=== PATIENT | female | born 1980 | race Caucasian/White ===

== ENCOUNTER 2018-05-07 09:09 | Emergency (ER) | payer OTHER ==
[~2018-05-07] VITALS: Ht 154.9 cm; Wt 49.0 kg
[~2018-05-07 09:09] MED LIST: ALLERGRA PO; AMBIEN10 MG PO; ATIVAN PO; HYDROCODON-ACE1 EAC9 PO; HYDROCODONE PO; LISINOPRIL PO; LOPRESSOR25 MG PO; PREDNISONE PO; PROAIR HFA8.5 G1 PO; SYMBICORT 160-4.6 GM PO; VIBRYD PO; XANAX2 MG PO; XOP
== END 2018-05-07 10:03 | disposition home or self-care (01) ==
LOC: FSED 09:09
DX: E87.5 Hyperkalemia (principal); I10 Essential (primary) hypertension; J45.909 Unspecified asthma, uncomplicated
CPT/HCPCS: 80053; 80307; 81003; 81025; 99283

== ENCOUNTER → 2018-05-10 | Day surgery (SDC) | payer OTHER ==
[2018-05-06 11:18] LABS: BASOPHILS % 0.5 % (0.0-1.0); EOSINOPHILS # (AUTO) 0.3 (0.0-0.4); EOSINOPHILS % 3.2 % (0.0-6.0); HEMATOCRIT 44.3 % (34.2-44.1); HEMOGLOBIN 15.2 g/dL (12.0-16.0); LYMPHOCYTES # (AUTO) 2.4 (1.0-3.2); LYMPHOCYTES % 31.1 % (18.0-39.1); MEAN CORPUSCULAR HEMOGLOBIN 31.3 pg (28-32); MEAN CORPUSCULAR HGB CONC 34.3 g/dL (31-35); MEAN CORPUSCULAR VOLUME 91.2 fL (81-99); MONOCYTES # (AUTO) 0.8 (0.2-0.8); MONOCYTES % 10.8 % (4.4-11.3); NEUTROPHILS # (AUTO) 4.2 (2.1-6.9); NEUTROPHILS % 54.3 % (38.7-80.0); PLATELET COUNT 282 x10e3/uL (140-360); RED BLOOD COUNT 4.86 x10e6/uL (3.6-5.1); RED CELL DISTRIBUTION WIDTH 14.3 % (11.7-14.4)
[2018-05-06 11:27] LABS: INR 0.96
[2018-05-06 11:35] LABS: ALANINE AMINOTRANSFERASE 123 IU/L (0-55); ALBUMIN 4.1 g/dL (3.5-5.0); ALBUMIN/GLOBULIN RATIO 1.4 (0.8-2.0); ALKALINE PHOSPHATASE 102 IU/L (40-150); BLOOD UREA NITROGEN 5 mg/dL (7-26); BUN/CREATININE RATIO 7 (6-25); CALCIUM 10.2 mg/dL (8.4-10.2); CARBON DIOXIDE 29 mmol/L (22-29); CHLORIDE 101 mmol/L (98-107); CREATININE, SERUM 0.69 mg/dL (0.57-1.11); EST GLOMERULAR FILTRATION RATE > 60 ML/MIN (60-); GLUCOSE 90 mg/dL (74-118); SODIUM 140 mmol/L (136-145)
[~2018-05-10] VITALS: Ht 152.4 cm; Wt 49.0 kg
[2018-05-10] VITALS (8 sets, daily range): BP systolic 101–118; BP diastolic 60–77
[~2018-05-10] MED LIST changes: +FENTANYL CITRATE/PF 100MCG/2 ML INJ ONE; +HEPARIN SOD/SOD CHLORIDE 2,000 ML ONE; +IOPAMIDOL 370 MG/ML 200 ML INFUS..BTL INJ ONE; +LIDOCAINE HCL 2% LOCAL 20 ML VIAL ONE; +MIDAZOLAM HCL 2 MG/2 ML VIAL ONE; +SODIUM CHLORIDE 0.9% 1000ML 1,000 ML ONE
[2018-05-10 10:09] LABS: ANION GAP 17.3 mmol/L (8-16); BLOOD UREA NITROGEN 6 mg/dL (7-26); BUN/CREATININE RATIO 9 (6-25); CALCIUM 9.4 mg/dL (8.4-10.2); CARBON DIOXIDE 29 mmol/L (22-29); CHLORIDE 100 mmol/L (98-107); CREATININE, SERUM 0.69 mg/dL (0.57-1.11); EST GLOMERULAR FILTRATION RATE > 60 ML/MIN (60-); GLUCOSE 91 mg/dL (74-118); POTASSIUM 4.3 mmol/L (3.5-5.1); SODIUM 142 mmol/L (136-145)
--- NOTE | 2018-05-10 12:12 | Operative Report ---
DATE OF PROCEDURE: May 10, 2018 PROCEDURES 1. Cardiac catheterization. 2. Selective coronary angiography x2. 3. Left heart catheterization. CONSENT: Informed consent was obtained and documented in the chart. SEDATION 1. Versed 8 mg. 2. Fentanyl 125 mcg. INDICATION: Angina. PROCEDURE IN DETAIL: The patient was brought to the cardiac catheterization laboratory in a fasting state. After written informed consent was obtained, bilateral groins were prepped and draped in the usual sterile fashion. Lidocaine 1% was infiltrated over the right groin to achieve local anesthesia. Micropuncture needle was used to access the right common femoral artery. A 5-Moroccan sheath was placed via modified Seldinger technique. A 5-Moroccan JL4 was inserted and advanced into the ascending aorta and the left main coronary artery was cannulated under fluoroscopic guidance. Selective coronary angiography was performed. Next, the JL4 was removed over the wire and a 5-Moroccan JR4 was inserted and advanced into the ascending aorta and left ventricle. Hemodynamic measurements were performed. The JR4 was then withdrawn into the ascending aorta and used to cannulate the right coronary artery under fluoroscopic guidance. Selective coronary angiography was performed. The JR4 was removed over the wire and angiogram was performed of the right iliac system through the sheath. The 5-Moroccan sheath was removed and manual pressure was held until adequate hemostasis was achieved. The patient tolerated the procedure without any complications. Estimated blood less than 10 mL. FINDINGS 1. Right dominant system. 2. The left main coronary artery bifurcates into a left anterior descending and circumflex artery. 3. The LAD is a moderate-diameter vessel without evidence of coronary artery disease. It gives rise to a branching first diagonal. 4. The left circumflex artery is a small-caliber vessel that gives rise to an OM1. There is no evidence of coronary artery disease. 5. The right coronary artery is a moderate-diameter vessel that gives rise to the PDA. There is no angiographic evidence of coronary artery disease. 6. LV pressures 110/5, LVEDP 13 mmHg. IMPRESSION 1. No coronary artery disease. 2. Normal left ventricle filling pressures. RECOMMENDATIONS: Risk factor modification. Investigate alternate etiologies of patient's chest pain and shortness of breath. Job#: [id number] LPA
== END | disposition home or self-care (01) ==
LOC: CATH LAB 08:55
PROVIDERS: ATTEND Internal Medicine
DX: I20.8 Other forms of angina pectoris (principal); J44.9 Chronic obstructive pulmonary disease, unspecified; I10 Essential (primary) hypertension; F17.200 Nicotine dependence, unspecified, uncomplicated; Z01.812 Encounter for preprocedural laboratory examination
CPT/HCPCS: 36415 ×2; 80048; 80053; 85025; 85610; 93005; 93458; C1769; J2001; J2250; J7030; Q9967

== ENCOUNTER 2018-11-14 09:44 | Emergency (ER) | payer OTHER ==
[~2018-11-14] VITALS: Ht 154.9 cm; Wt 48.3 kg
[~2018-11-14 09:44] MED LIST changes: -FENTANYL CITRATE/PF 100MCG/2 ML INJ ONE; -HEPARIN SOD/SOD CHLORIDE 2,000 ML ONE; -IOPAMIDOL 370 MG/ML 200 ML INFUS..BTL INJ ONE; -LIDOCAINE HCL 2% LOCAL 20 ML VIAL ONE; -MIDAZOLAM HCL 2 MG/2 ML VIAL ONE; -SODIUM CHLORIDE 0.9% 1000ML 1,000 ML ONE
[2018-11-14] MEDS ORDERED: GABAPENTIN100 MG (10:13)
[2018-11-14] MEDS ORDERED: XOPENEX CO1.25 MG/0. (10:13)
[2018-11-14] MEDS ORDERED: SUBOXONE 2 MG-1 EAC2 (10:13)
--- NOTE | 2018-11-14 11:51 | Diagnostic Imaging Report ---
EXAM: CXR 2 VIEW - [facility]OPD DATE: 11/14/2018 12:00 AM INDICATION: Right chest pain COMPARISON: No prior exam has been provided on PACS for comparison. FINDINGS: Lines and tubes: None Heart size normal. No focal pulmonary opacity, pleural effusion or pneumothorax. Upper abdomen unremarkable. No acute bony abnormality. IMPRESSION: No evidence for acute disease. Signed by: Dr. Albert Muñiz M.D. on 11/14/2018 11:48 AM
[2018-11-14 12:46] VITALS: BP 148/94
== END 2018-11-14 12:48 | disposition left against medical advice (07) ==
LOC: FSED 09:44
DX: R07.89 Other chest pain (principal); S20.211A Contusion of right front wall of thorax, initial encounter; S40.012A Contusion of left shoulder, initial encounter; I10 Essential (primary) hypertension; J44.9 Chronic obstructive pulmonary disease, unspecified; J45.909 Unspecified asthma, uncomplicated; F41.9 Anxiety disorder, unspecified; F17.210 Nicotine dependence, cigarettes, uncomplicated
CPT/HCPCS: 36415; 71046; 80048; 80076; 80307; 81003; 82550; 84484; 85025; 93005; 99284

== ENCOUNTER 2019-01-05 15:28 | Emergency (ER) | payer OTHER ==
[~2019-01-05] VITALS: Ht 154.9 cm; Wt 47.2 kg
[~2019-01-05 15:28] MED LIST changes: +GABAPENTIN100 MG; +SUBOXONE 2 MG-1 EAC2; +XOPENEX CO1.25 MG/0.
[2019-01-05] MEDS ORDERED: SODIUM CHLORIDE 0.9% 1000ML 1,000 ML IV STA (15:48)
[2019-01-05] MEDS ORDERED: LORAZEPAM INJ 2 MG/ML VIAL IV ONE (16:00)
[2019-01-05] MEDS ORDERED: KETOROLAC TROMETHAMINE 30 MG/ML VIAL IV ONE (16:00)
[2019-01-05] MEDS ORDERED: DIPHENHYDRAMINE HCL INJ 50 MG/ML VIAL IV ONE (16:00)
[2019-01-05] MEDS ORDERED: ONDANSETRON HCL INJ 2MG/ML 2ML 2 MG/ML VIAL IV ONE (16:00)
--- NOTE | 2019-01-05 17:35 | Diagnostic Imaging Report ---
EXAM: CT Abdomen and Pelvis WITHOUT contrast INDICATION: Abdominal pain radiating to the back. COMPARISON: None. TECHNIQUE: Abdomen and pelvis were scanned utilizing a multidetector helical scanner from the lung base to the pubic symphysis without administration of IV or oral contrast. Absence of intravenous contrast decreases sensitivity for detection of focal lesions and vascular pathology. Coronal and sagittal reformations were obtained. Stone protocol is performed. RADIATION DOSE: Total DLP: 308.6 mGy*cm Dose modulation, iterative reconstruction, and/or weight based adjustment of the mA/kV was utilized to reduce the radiation dose to as low as reasonably achievable. COMPLICATIONS: None FINDINGS: LINES and TUBES: None. LOWER THORAX: A 2 mm groundglass nodule in the left lower lobe on series 2, image 1, likely infectious or inflammatory. HEPATOBILIARY: No focal hepatic lesions. No biliary ductal dilation. GALLBLADDER: Decompressed. No radio-opaque stones or sludge. No wall thickening. SPLEEN: No splenomegaly. PANCREAS: No focal masses or ductal dilatation. ADRENALS: No adrenal nodules KIDNEYS/URETERS: No hydronephrosis. No evidence of solid mass. Punctate 1 mm calcification near the left UVJ may represent a distal ureteral stone versus phlebolith on series 2, image 67. GI TRACT: No abnormal distention, wall thickening, or evidence of bowel obstruction. Appendix is not clearly identified. There is however no fat stranding or adenopathy in the right lower quadrant to suggest appendicitis. PELVIC ORGANS/BLADDER: Bilateral calcified phleboliths. LYMPH NODES: No lymphadenopathy. VESSELS: Unremarkable. PERITONEUM / RETROPERITONEUM: No free air or fluid. BONES: Unremarkable. SOFT TISSUES: Bilateral breast implants. IMPRESSION: A punctate 1 mm calcification near the left UVJ may represent distal ureteral stone versus phlebolith. No evidence of hydronephrosis. Signed by: Dr. Neva Oglesby MD on 01/05/2019 5:31 PM
[2019-01-05 18:05] VITALS: BP 157/87
== END 2019-01-05 18:11 | disposition home or self-care (01) ==
LOC: FSED 15:28
DX: M54.5 Low back pain (principal); G89.29 Other chronic pain; S39.012A Strain of muscle, fascia and tendon of lower back, initial encounter; X58.XXXA Exposure to other specified factors, initial encounter
CPT/HCPCS: 74176; 80053; 81003; 85025; 99284; J1200; J1885; J2060; J2405; J7030

== ENCOUNTER → 2019-05-13 | Day surgery (SDC) | payer OTHER ==
[2019-05-12 13:03] LABS: BASOPHILS # (AUTO) 0.1 (0.0-0.1); BASOPHILS % 0.5 % (0.0-1.0); EOSINOPHILS # (AUTO) 0.4 (0.0-0.4); EOSINOPHILS % 3.8 % (0.0-6.0); HEMATOCRIT 45.5 % (34.2-44.1); HEMOGLOBIN 15.8 g/dL (12.0-16.0); LYMPHOCYTES % 41.3 % (18.0-39.1); MEAN CORPUSCULAR HEMOGLOBIN 31.4 pg (28-32); MEAN CORPUSCULAR HGB CONC 34.7 g/dL (31-35); MEAN CORPUSCULAR VOLUME 90.5 fL (81-99); MONOCYTES # (AUTO) 0.7 (0.2-0.8); MONOCYTES % 7.2 % (4.4-11.3); NEUTROPHILS # (AUTO) 4.6 (2.1-6.9); NEUTROPHILS % 46.9 % (38.7-80.0); PLATELET COUNT 302 x10e3/uL (140-360); RED BLOOD COUNT 5.03 x10e6/uL (3.6-5.1); RED CELL DISTRIBUTION WIDTH 12.1 % (11.7-14.4)
[~2019-05-13] MED LIST changes: +FENTANYL CITRATE/PF 100MCG/2 ML INJ ONE; +GLUCAGON FOR INJ 1 MG VIAL ONE; +HYOSCYAMINE 0.125 MG TAB ONE; +LABETALOL HCL 5 MG/ML 20ML VIAL ONE; +LIDOCAINE HCL 2% LOCAL INJ 5 ML SDV VIAL INJ ONE; +LISINOPRIL-HCT1 EAC1 PO; +MIDAZOLAM HCL 2 MG/2 ML VIAL ONE; +ONDANSETRON HCL INJ 2MG/ML 2ML 2 MG/ML VIAL ONE; +PROPOFOL IV EMULSION 10 MG/ML 50 ML VIAL ONE; +ZOFRAN8 MG PO; +phenergan PO
[2019-05-13 17:33] LABS: WBC,FECAL (FECAL LACTOFERRIN) NEGATIVE (NEGATIVE)
--- NOTE | 2019-05-13 19:28 | Operative Report ---
DATE OF PROCEDURE: 05/13/2019 SURGEON: Fernando Martin MD PROCEDURES: EGD with biopsies and esophageal dilatation and colonoscopy with polypectomy and biopsies. INDICATIONS FOR EGD: Dysphagia, history of nausea, vomiting. INDICATIONS FOR COLONOSCOPY: Chronic diarrhea. MEDICATIONS: The patient was done under MAC, please see anesthesiologist's note. PROCEDURE IN DETAIL: With the patient in the left lateral decubitus position, a flexible fiberoptic Olympus gastroscope was introduced into the esophagus under direct visualization without any difficulty. There was some patchy erythema noted in distal esophagus. A mild stricture was noted at the GE junction that was dilated to size 52-Turkish Delcid. The scope was then advanced with ease into the stomach. Mucosa overlying the antrum and the body revealed some diffuse erythema and moderate edema. Biopsies were obtained and sent to stain for H. pylori. The pylorus was of normal contour and shape, it was intubated with ease and the scope was advanced all the way to the second portion of the duodenum. Biopsies were obtained from the second portion as well as the duodenal bulb. The scope was then withdrawn back into the stomach and retroflexed, and mucosa overlying the fundus and the cardia appeared to be within normal limits. The scope was then straightened out, it was subsequently withdrawn. The patient tolerated the procedure well. IMPRESSION: 1. Distal esophagitis. 2. Esophageal stricture at GE junction dilated to size 52-Turkish Delcid. 3. Gastritis, biopsied, biopsies sent to stain for H. pylori. 4. Rule out sprue. PLAN: 1. Follow up histology. 2. Initiate Protonix 40 mg one p.o. q.a.m. a.c. PROCEDURE IN DETAIL: The patient was then turned around, then after adequate lubrication of the anal canal, a flexible fiberoptic Olympus colonoscope was inserted into the rectum with ease and advanced all the way to the cecum. A minute polyp was noted in the cecum, that was removed per the cold biopsy forceps. The ileocecal valve was intubated and the scope was advanced into the terminal ileum. Biopsies were obtained. The scope was then withdrawn back into the colon. In the ascending and the transverse grossly were unremarkable. Some mild patchy inflammatory changes were noted in the left colon as well as the rectum, random biopsies were obtained. The scope was then retroflexed into the distal rectum and small internal hemorrhoids were noted, none of which was actively bleeding. The scope was then straightened out, it was subsequently withdrawn after securing an adequate stool specimen, that was sent for the appropriate stool studies. The patient tolerated the procedure well. IMPRESSION: 1. Cecal polyp, removed per the cold biopsy forceps. 2. Mild patchy left-sided colitis. 3. Proctitis, mild. 4. Internal hemorrhoids, none actively bleeding. PLAN: 1. Follow up histology. 2. Follow up stool studies. 3. Initiate Bentyl 10 mg one p.o. t.i.d. 4. Visbiome one p.o. b.i.d. Fernando Martin MD [facility] [place]/MOD[facility] /[id number] cc: Taurus Flores MD
[2019-05-14 14:40] LABS: C DIFFICILE TOXIN A&B AMP PROB NEGATIVE (NEGATIVE)
== END | disposition home or self-care (01) ==
LOC: OR 12:55
PROVIDERS: ATTEND Internal Medicine Gastroenterology
DX: K20.9 Esophagitis, unspecified (principal); K22.2 Esophageal obstruction; K63.5 Polyp of colon; K51.50 Left sided colitis without complications; K62.89 Other specified diseases of anus and rectum; K64.8 Other hemorrhoids; K29.50 Unspecified chronic gastritis without bleeding; R19.7 Diarrhea, unspecified; R13.10 Dysphagia, unspecified; Z86.010 Personal history of colon polyps; R11.2 Nausea with vomiting, unspecified; Z91.041 Radiographic dye allergy status; Z01.810 Encounter for preprocedural cardiovascular examination; Z01.812 Encounter for preprocedural laboratory examination; K21.9 Gastro-esophageal reflux disease without esophagitis; Z87.442 Personal history of urinary calculi; F41.9 Anxiety disorder, unspecified; Z72.0 Tobacco use; I49.9 Cardiac arrhythmia, unspecified; Z88.5 Allergy status to narcotic agent; Z88.8 Allergy status to other drugs, medicaments and biological substances
CPT/HCPCS: 36415; 43239; 43450; 45380; 83630; 83993; 85025; 87045; 87177; 87328; 87493; 93005; J1610; J2001; J2250; J2405; J2704; J3010; J3490

== ENCOUNTER 2019-05-23 13:34 | Emergency (ER) | payer OTHER ==
[~2019-05-23] VITALS: Ht 154.9 cm; Wt 48.5 kg
[~2019-05-23 13:34] MED LIST changes: -FENTANYL CITRATE/PF 100MCG/2 ML INJ ONE; -GLUCAGON FOR INJ 1 MG VIAL ONE; -HYOSCYAMINE 0.125 MG TAB ONE; -LABETALOL HCL 5 MG/ML 20ML VIAL ONE; -LIDOCAINE HCL 2% LOCAL INJ 5 ML SDV VIAL INJ ONE; -MIDAZOLAM HCL 2 MG/2 ML VIAL ONE; -ONDANSETRON HCL INJ 2MG/ML 2ML 2 MG/ML VIAL ONE; -PROPOFOL IV EMULSION 10 MG/ML 50 ML VIAL ONE
--- NOTE | 2019-05-23 15:04 | Diagnostic Imaging Report ---
CT of the abdomen and pelvis, without contrast, 05/23/2019. History: Fall 4 days ago, now with left-sided posterior rib pain and back pain. Comparison: 01/05/2019. Technique: Multidetector CT scanning of the abdomen and pelvis was performed from the level of the lung bases to the inferior pubic rami without intravenous or oral contrast. Coronal and sagittal multiplanar reformations were obtained. RADIATION DOSE: Total DLP: 229 mGy*cm Dose modulation, iterative reconstruction, and/or weight based adjustment of the mA/kV was utilized to reduce the radiation dose to as low as reasonably achievable. Discussion: Examination is limited without contrast. Lung bases: There is left basilar atelectasis. There is no evidence of pneumothorax. Abdomen: The liver is normal in size. There is diffuse low-density liver compared to the spleen. The gallbladder, biliary tree, spleen, pancreas, adrenal glands, and kidneys are unremarkable. The abdominal aorta is within normal limits. There is no bowel dilatation. The appendix is visualized and is normal. There is no evidence of adenopathy or free fluid. Pelvis: The bladder is are unremarkable. An apparent Payton catheter is noted curled within the upper portion of the vagina. Multiple calcified fluids are present within the pelvis bilaterally. The uterus and adnexa are not visualized. There is no evidence of free fluid or adenopathy. Bones and soft tissues: A minimally displaced fracture of the left posterior ninth rib is noted. Degenerative changes are present in the lower lumbar spine. IMPRESSION: 1. Minimally displaced left posterior ninth rib fracture with adjacent left lower lobe atelectasis. No evidence of pneumothorax. 2. Diffuse fatty infiltration of the liver. 3. Apparent misplacement of a Payton catheter terminating within the upper vagina. Findings were discussed with Dr. Torres at 3:00 PM on 05/23/2019. 4. Status post hysterectomy. Signed by: Markus Tamez on 05/23/2019 3:01 PM
--- NOTE | 2019-05-23 16:15 | Diagnostic Imaging Report ---
Chest, 2 views, 05/23/2019. Comparison: 11/14/2018. Findings: The cardiomediastinal silhouette and pulmonary vasculature are within normal limits. There is biapical pleural thickening. The lungs are clear without evidence of consolidation or pleural effusion. Degenerative change noted in the thoracic spine. Bilateral breast implants are noted. There are no acute osseous or soft tissue abnormalities. Impression: No acute cardiopulmonary abnormality. Signed by: Markus Tamez on 05/23/2019 4:11 PM
== END 2019-05-23 16:27 | disposition home or self-care (01) ==
LOC: FSED 13:34
DX: S22.32XA Fracture of one rib, left side, initial encounter for closed fracture (principal); W01.0XXA Fall on same level from slipping, tripping and stumbling without subsequent striking against object, initial encounter; Y92.008 Other place in unspecified non-institutional (private) residence as the place of occurrence of the external cause; K70.0 Alcoholic fatty liver; I10 Essential (primary) hypertension
CPT/HCPCS: 51700; 71046; 74176; 80053; 80307; 81003; 85025; 99284